=== PATIENT | male | born 1975 | race Caucasian/White ===

== ENCOUNTER 2022-11-07 14:03 | Emergency (ER) | payer OTHER ==
[2022-11-07 15:32] VITALS: BP 160/80; PULSE 89
== END 2022-11-07 15:31 | disposition home or self-care (01) ==
LOC: EDBD → MW.ED 14:03 → MERGE 14:03 → MW.ED 15:31
DX: S93.602A Unspecified sprain of left foot, initial encounter (principal); F17.210 Nicotine dependence, cigarettes, uncomplicated
CPT/HCPCS: 73620-26-LT; 73620-LT; 99283